=== PATIENT | female | born 1995 | race Caucasian/White ===

== ENCOUNTER 2019-04-07 14:53 | Emergency (ER) | payer OTHER ==
[~2019-04-07] VITALS: Ht 170.2 cm; Wt 76.2 kg
[2019-04-07 17:35] VITALS: BP 78/123
--- NOTE | 2019-04-07 17:35 | NUR ---
Patient discharged to home in stable condition. Written and verbal after care instructions given. Patient verbalizes understanding of instruction.
== END 2019-04-07 17:35 | disposition home or self-care (01) ==
LOC: ER 14:56
DX: M54.6 Pain in thoracic spine (principal); W18.09XA Striking against other object with subsequent fall, initial encounter; Y93.01 Activity, walking, marching and hiking; Y92.488 Other paved roadways as the place of occurrence of the external cause; Y99.8 Other external cause status
CPT/HCPCS: 71045-TC